=== PATIENT | female | born 2000 | race Caucasian/White ===

== ENCOUNTER → 2021-10-04 | Outpatient (CLI) | payer OTHER ==
--- NOTE | 2021-10-04 16:21 | REP ---
INDICATION: Left breast lump felt by provider. COMPARISON: None. TECHNIQUE: Targeted ultrasound images of the area of the palpable abnormality were performed. FINDINGS: There are no cystic or solid masses identified in the left breast. IMPRESSION: Normal left breast ultrasound. BI-RADS category 1: Negative. <Electronically signed by Roland Caraballo > 10/04/21 [id number]
== END ==
LOC: M RAD 14:59
PROVIDERS: ATTEND Advanced Practice Midwife
DX: N63.22 Unspecified lump in the left breast, upper inner quadrant (principal)

== ENCOUNTER → 2022-12-01 | Outpatient (CLI) | payer OTHER | LOC: M WHC 08:22 | PROVIDERS: ATTEND Advanced Practice Midwife | DX: Z34.92 Encounter for supervision of normal pregnancy, unspecified, second trimester (principal); Z3A.31 31 weeks gestation of pregnancy ==

== ENCOUNTER 2022-12-09 07:12 | Outpatient (CLI) | payer OTHER ==
[~2022-12-09] VITALS: Ht 162.6 cm; Wt 94.9 kg
[2022-12-09 07:33] VITALS: BP 130/79
[2022-12-09] MEDS ORDERED: ASPI81CH33 PO (07:57)
[2022-12-09] MEDS ORDERED: PRENTAB9 PO (07:57)
[2022-12-09] MEDS ORDERED: NIFE1TAB52 PO (07:57)
[2022-12-09] MEDS ORDERED: HOME MED LIST COMPLETE! XX SCH (08:00)
[2022-12-09 09:50] VITALS: BP 131/84
[2022-12-09] MEDS ORDERED: RHOGAM 300MCG (1500IU) INJ IM ONE (09:50)
[2022-12-09 11:32] VITALS: BP 134/79
== END 2022-12-09 11:45 | disposition home or self-care (01) ==
LOC: M LDO 07:12
PROVIDERS: ATTEND Obstetrics & Gynecology
DX: O46.92 Antepartum hemorrhage, unspecified, second trimester (principal); Z3A.22 22 weeks gestation of pregnancy; Z79.82 Long term (current) use of aspirin
CPT/HCPCS: 36415; 59025; 76815; 76817; 86850; 86900; 86901; G0463; J2790

== ENCOUNTER 2023-02-28 10:55 | Outpatient (CLI) | payer OTHER ==
[2023-02-28] VITALS (11 sets, daily range): BP systolic 131–166; BP diastolic 69–92
[~2023-02-28] VITALS: Ht 162.6 cm; Wt 105.6 kg
[~2023-02-28 10:55] MED LIST: ASPI81CH33 PO; NIFE1TAB52 PO; PRENTAB9 PO
[2023-02-28] MEDS ORDERED: FLUCONAZOLE 50MG TABLET PO ONE (12:40)
== END 2023-02-28 15:24 | disposition home or self-care (01) ==
LOC: M LDO 10:55
PROVIDERS: ATTEND Advanced Practice Midwife
DX: O23.593 Infection of other part of genital tract in pregnancy, third trimester (principal); O47.03 False labor before 37 completed weeks of gestation, third trimester; O13.3 Gestational [pregnancy-induced] hypertension without significant proteinuria, third trimester; O34.219 Maternal care for unspecified type scar from previous cesarean delivery; Z3A.34 34 weeks gestation of pregnancy; Z79.82 Long term (current) use of aspirin
CPT/HCPCS: 59025; 81001; G0463

== ENCOUNTER 2023-03-28 05:12 | Inpatient (IN) | payer OTHER ==
[~2023-03-28] VITALS: Ht 162.6 cm; Wt 107.5 kg
[2023-03-28] VITALS (7 sets, daily range): BP systolic 126–156; BP diastolic 70–86
[~2023-03-28 05:12] MED LIST changes: +FLON1SPR NARES; +ZYRTTAB8 PO
[2023-03-28] MEDS ORDERED: LACTATED RINGER'S 1000 ML IV STA (05:18)
[2023-03-28] MEDS ORDERED: LR 1,000 ML IV SCH ×2 (05:20→10:05)
[2023-03-28] MEDS ORDERED: TUMS500C PO (05:42)
[2023-03-28] MEDS ORDERED: HOME MED LIST COMPLETE! XX SCH (05:45)
[2023-03-28] MEDS ORDERED: BICITRA 30ML SOLN UDC PO ONE (06:00)
[2023-03-28] MEDS ORDERED: ceFAZolin SOD 2 GM in IV 1 EA IV ONE (06:00)
[2023-03-28 06:15] LABS: HEMOGLOBIN 10.9 g/dl (12.0-15.5); MEAN CORPUSCULAR HEMOGLOBIN 25.8 pg (27.0-33.0); MEAN CORPUSCULAR HGB CONC 32.1 g/dl (32.0-36.5); MEAN CORPUSCULAR VOLUME 80.6 fl (80.0-96.0); PLATELET COUNT, AUTOMATED 130 10^3/uL (150-450); RED BLOOD COUNT 4.22 10^6/uL (4.00-5.40); WHITE BLOOD COUNT 8.8 10^3/uL (4.0-10.0)
[2023-03-28] MEDS ORDERED: OXYTOCIN 30UNITS IN 0.9% NaCl 500ML IV BAG As Ordered ONE ×3 (07:20→09:50)
[2023-03-28] MEDS ORDERED: MORPHINE PRES-FREE INJ 10 MG/10 ML VIAL As Ordered ONE (07:20)
[2023-03-28] MEDS ORDERED: ACETAMINOPHEN 1000MG 100ML IV BAG As Ordered ONE (07:20)
[2023-03-28] MEDS ORDERED: ONDANSETRON 4MG 2ML VIAL As Ordered ONE (07:21)
[2023-03-28] MEDS ORDERED: METOCLOPRAMIDE INJ 10MG/2ML VIAL As Ordered ONE (07:21)
[2023-03-28] MEDS ORDERED: KETOROLAC 60MG 2ML VIAL As Ordered ONE (07:21)
[2023-03-28] MEDS ORDERED: ePHEDrine SULFATE 25 MG/5 ML(5MG/ML) SYRINGE As Ordered ONE (08:13)
[2023-03-28] MEDS ORDERED: PHENYLephrine 500MCG 5ML (100MCG/ML) SYRINGE As Ordered ONE ×2 (08:13→08:19)
[2023-03-28 08:49] LABS: CORD GAS ABE A -6.4; CORD GAS ABE V -2.7; CORD GAS HCO3 A 22.3 MMOL/L; CORD GAS HCO3 V 23.4 MMOL/L; CORD GAS O2 SAT A 72.7 %; CORD GAS PCO2 A 57.2 mmHg; CORD GAS PH A 7.209 UNITS; CORD GAS PH V 7.333 UNITS; CORD GAS PO2 A 34.7 mmHg; CORD GAS PO2 V 24.5 mmHg; CORD GAS SBC A 18.7 MMOL/L; CORD GAS SBC V 21.3 MMOL/L; CORD GAS TCO2 A 24.1 MMOL/L; CORD GAS TCO2 V 24.7 MMOL/L
[2023-03-28] MEDS: PRENATAL VITAMINS CHEWABLE TABLET PO SCH (09:00)
[2023-03-28] MEDS: DOCUSATE SODIUM 100MG CAPSULE PO SCH ×2 (09:00→21:09)
[2023-03-28] MEDS ORDERED: MOM 30ML SUSPENSION UDC PO PRN (09:30)
[2023-03-28] MEDS ORDERED: SIMETHICONE 80MG CHEW TAB PO PRN (09:30)
[2023-03-28] MEDS ORDERED: RHOGAM 300MCG (1500IU) INJ IM SCH (09:30)
[2023-03-28] MEDS ORDERED: ACETAMINOPHEN 500 MG TAB PO PRN (09:30)
[2023-03-28] MEDS ORDERED: OXYTOCIN DRIP 30 UNITS in IV 1 EA IV SCH (09:30)
[2023-03-28] MEDS ORDERED: oxyCODONE 5MG TAB PO PRN ×3 (09:30→10:05)
[2023-03-28] MEDS: SLF 3 ML SYR IV SCH ×2 (10:05→18:05)
[2023-03-28] MEDS ORDERED: METOCLOPRAMIDE INJ 10MG/2ML VIAL IV PRN (10:05)
[2023-03-28] MEDS ORDERED: NALOXONE INJ 0.4MG/1ML VIAL IV PRN ×2 (10:05)
[2023-03-28] MEDS ORDERED: fentaNYL 100 MCG/2 ML INJECTION IV PRN (10:05)
[2023-03-28] MEDS ORDERED: **NOTE PATIENT COMMENT** MISC XX SCH (10:05)
[2023-03-28] MEDS ORDERED: diphenhydrAMINE 50MG/ML VIAL IV PRN (10:05)
[2023-03-28] MEDS ORDERED: ONDANSETRON 4MG 2ML VIAL IV PRN (10:05)
[2023-03-28] MEDS: KETOROLAC 30 MG/ML 1ML VIAL IV SCH ×2 (15:18→21:09)
[2023-03-29 02:00] VITALS: BP 120/58
[2023-03-29] MEDS: SLF 3 ML SYR IV SCH (03:01)
[2023-03-29] MEDS: KETOROLAC 30 MG/ML 1ML VIAL IV SCH (03:02)
[2023-03-29 06:00] VITALS: BP 131/74
[2023-03-29 06:54] LABS: HEMATOCRIT 29.2 % (36.0-47.0); HEMOGLOBIN 9.2 g/dl (12.0-15.5); MEAN CORPUSCULAR HEMOGLOBIN 25.7 pg (27.0-33.0); MEAN CORPUSCULAR HGB CONC 31.5 g/dl (32.0-36.5); MEAN CORPUSCULAR VOLUME 81.6 fl (80.0-96.0); PLATELET COUNT, AUTOMATED 106 10^3/uL (150-450); RED BLOOD COUNT 3.58 10^6/uL (4.00-5.40); WHITE BLOOD COUNT 10.2 10^3/uL (4.0-10.0)
[2023-03-29] MEDS: DOCUSATE SODIUM 100MG CAPSULE PO SCH ×2 (07:41→20:07)
[2023-03-29] MEDS: PRENATAL VITAMINS CHEWABLE TABLET PO SCH (07:41)
[2023-03-29 10:00] VITALS: BP 129/76
[2023-03-29] MEDS: IBUPROFEN 800 MG TAB PO SCH ×2 (12:48→18:40)
[2023-03-29 14:00] VITALS: BP 110/56
[2023-03-29 18:00] VITALS: BP 155/81
[2023-03-29 22:00] VITALS: BP 129/74
[2023-03-30 02:00] VITALS: BP 124/65
[2023-03-30] MEDS: IBUPROFEN 800 MG TAB PO SCH ×2 (02:58→12:47)
[2023-03-30 06:00] VITALS: BP 129/70
[2023-03-30] MEDS: PRENATAL VITAMINS CHEWABLE TABLET PO SCH (08:19)
[2023-03-30] MEDS: DOCUSATE SODIUM 100MG CAPSULE PO SCH (08:19)
[2023-03-30] MEDS ORDERED: MEASLES,MUMPS,RUBELLA VACCINE INJ (MMR-II) SC.IMMUN ONE (09:00)
[2023-03-30] MEDS ORDERED: IBUP80TA PO (09:03)
[2023-03-30] MEDS ORDERED: COLA100C5 PO (09:03)
[2023-03-30] MEDS ORDERED: OXYC-517 PO (09:03)
[2023-03-30] MEDS ORDERED: ACET-683 PO (09:03)
== END 2023-03-30 18:00 | disposition home or self-care (01) | DRG 773 ==
LOC: M LDI 05:12 → M OBS 10:49
PROVIDERS: ADMIT Obstetrics & Gynecology; ATTEND Obstetrics & Gynecology
PROC: 10D00Z1 Extraction of Products of Conception, Low, Open Approach (ICD-10-PCS; principal; 2023-03-28 07:30)
DX: O34.211 Maternal care for low transverse scar from previous cesarean delivery (principal); O32.8XX0 Maternal care for other malpresentation of fetus, not applicable or unspecified; Z37.0 Single live birth; Z3A.38 38 weeks gestation of pregnancy; O36.63X0 Maternal care for excessive fetal growth, third trimester, not applicable or unspecified